=== PATIENT | male | born 1935 | race Caucasian/White ===

== ENCOUNTER 2020-02-16 15:00 | Inpatient (IN) | payer MEDICARE ==
[~2020-02-16] VITALS: Ht 175.3 cm; Wt 108.0 kg
[~2020-02-16 15:00] MED LIST: CEPH500 PO
[2020-02-16 15:48] LABS: BASOPHILS ABSOLUTE AUTO 0.03 K/mm3 (0.00-0.23); BASOPHILS PERCENT AUTO 0 % (0-2); EOSINOPHILS ABSOLUTE AUTO 0.08 K/mm3 (0.00-0.68); EOSINOPHILS PERCENT AUTO 1 % (0-6); Hematocrit 44.7 % (37.0-53.0); Hemoglobin 14.7 g/dL (13.5-17.5); IMMATURE GRAN ABSOLUTE AUTO 0.02 K/mm3 (0.00-0.10); IMMATURE GRAN PERCENT AUTO 0 % (0-1); LYMPHOCYTES ABSOLUTE AUTO 0.95 K/mm3 (0.84-5.20); LYMPHOCYTES PERCENT AUTO 13 % (21-46); MONOCYTES ABSOLUTE AUTO 0.89 K/mm3 (0.16-1.47); MONOCYTES PERCENT AUTO 12 % (4-13); Mean Corpuscular HGB 27.7 pg (26.0-34.0); Mean Corpuscular HGB Conc 32.9 g/dL (31.5-36.5); Mean Corpuscular Volume 84 fL (80-100); NEUTROPHILS ABSOLUTE AUTO 5.47 K/mm3 (1.96-9.15); NEUTROPHILS PERCENT AUTO 73 % (41-73); Platelet Count 156 K/mm3 (150-400); RDW Coefficient Variation 13.6 % (11.7-14.2); RDW Standard Deviation 42.5 fL (35.1-46.3); Red Blood Cell Count 5.31 M/mm3 (4.30-5.90); White Blood Cell Count 7.44 K/mm3 (4.00-11.30)
[2020-02-16 16:09] LABS: Alanine Aminotransfer (ALT/SGP 15 U/L (12-78); Albumin, Blood 3.1 g/dL (3.4-5.0); Albumin/Globulin Ratio 0.6 (0.8-1.8); Alk Phos 83 U/L (50-136); Anion Gap 5 mmol/L (6-16); Aspartate Aminotrans (AST/SGOT 17 U/L (12-37); Bilirubin, Total 0.7 mg/dL (0.1-1.0); Blood Urea Nitrogen 21 mg/dL (8-24); Bun/Creatinine Ratio 18.4 (12.0-20.0); CO2, Blood 30 mmol/L (21-32); Chloride, Blood 103 mmol/L (98-108); Creatinine, Blood 1.14 mg/dL (0.60-1.20); Glomerular Filtration Rate >60 (60-); Glucose, Blood 95 mg/dL (70-99); Potassium, Blood 3.4 mmol/L (3.5-5.5); Sodium, Blood 138 mmol/L (136-145); Total Protein, Blood 8.1 g/dL (6.4-8.2)
[2020-02-16] MEDS ORDERED: AMLO5 PO (18:32)
[2020-02-16] MEDS ORDERED: DYAZIDE 37.5-21 EACH PO (18:33)
[2020-02-16] MEDS ORDERED: AMLO10 PO (19:06)
[2020-02-16] MEDS ORDERED: ASPI81CH PO (21:21)
--- NOTE | 2020-02-16 22:00 | NUR ---
PT ADMITTED TO THE FLOOR FOR CELLULITIS OF THE GROIN. GENARO HAS BEEN SEEING THE [facility] BUT RECENTLY DEVELOPED WHAT HE THOUGHT WAS JOCK ITCH. IT CONTINUED TO GET WORSE AND PAINFUL SO HE CAME IN. ARRIVED TO THE FLOOR VIA GURNEY AND WAS TRANSFERRED USING THE SLIDER SHEET. LUNGS CLEAR. HR SINUS. NO CHEST PAIN OR COUGH NOTED. ABDOMIN IS DISTENDED ROUND, STATES IS HIS NORM. REGULAR BM. ABLE TO USE URINAL VOIDING WELL. LEFT SIDE OF GROIN INNER THIGH IS ANGRY RED WITH SHALLOW SKIN BREAKDOWN FROM MOISTURE. ON THE LEFT TESTICLE THERE IS THE SAME. AREAS ARE VERY RED, MOIST, WEEPING, CLEANSED AND APPLID ANTI-FUNGAL POWDER AND SILVERDENE TO THE LEG WHERE IT WAS OPENED, PLACED A EDUDRY BETWEEN THE TESTICLE AND LEG TO KEEP DRY. BLE DRESSINGS WERE CHANGED IN THE ER, CURRENTLY THERE ARE UNNA BOOTS ON BOTH SIDES. SAMARA STARTED. WILL CONTINUE TO MONITOR, CALL LIGHT IS IN REACH.
[2020-02-17 05:08] LABS: BASOPHILS ABSOLUTE AUTO 0.03 K/mm3 (0.00-0.23); BASOPHILS PERCENT AUTO 1 % (0-2); EOSINOPHILS PERCENT AUTO 2 % (0-6); Hematocrit 42.6 % (37.0-53.0); Hemoglobin 14.3 g/dL (13.5-17.5); IMMATURE GRAN ABSOLUTE AUTO 0.02 K/mm3 (0.00-0.10); IMMATURE GRAN PERCENT AUTO 0 % (0-1); LYMPHOCYTES ABSOLUTE AUTO 0.99 K/mm3 (0.84-5.20); LYMPHOCYTES PERCENT AUTO 15 % (21-46); MONOCYTES ABSOLUTE AUTO 0.92 K/mm3 (0.16-1.47); MONOCYTES PERCENT AUTO 14 % (4-13); Mean Corpuscular HGB 28.4 pg (26.0-34.0); Mean Corpuscular HGB Conc 33.6 g/dL (31.5-36.5); Mean Corpuscular Volume 85 fL (80-100); Mean Platelet Volume 10.4 fL (9.1-12.4); NEUTROPHILS ABSOLUTE AUTO 4.41 K/mm3 (1.96-9.15); NEUTROPHILS PERCENT AUTO 68 % (41-73); Platelet Count 166 K/mm3 (150-400); RDW Coefficient Variation 13.6 % (11.7-14.2); RDW Standard Deviation 42.1 fL (35.1-46.3); Red Blood Cell Count 5.04 M/mm3 (4.30-5.90); White Blood Cell Count 6.47 K/mm3 (4.00-11.30)
[2020-02-17 05:31] LABS: Anion Gap 7 mmol/L (6-16); Blood Urea Nitrogen 16 mg/dL (8-24); Bun/Creatinine Ratio 14.7 (12.0-20.0); CO2, Blood 30 mmol/L (21-32); Calcium, Blood 8.2 mg/dL (8.5-10.1); Chloride, Blood 103 mmol/L (98-108); Creatinine, Blood 1.09 mg/dL (0.60-1.20); Glomerular Filtration Rate >60 (60-); Glucose, Blood 96 mg/dL (70-99); Magnesium, Blood 2.3 mg/dL (1.6-2.4); Phosphorus, Blood 3.1 mg/dL (2.5-4.9); Potassium, Blood 3.1 mmol/L (3.5-5.5); Sodium, Blood 140 mmol/L (136-145)
--- NOTE | 2020-02-17 07:31 | NUR ---
SHIFT SUMMARY: GENARO WAS ADMITTED LAST NIGHT FOR CELLULITIS OF THE GROIN. HE REPORTS FEELING LIKE HE HAD JOCK ITCH THAT JUST WAS NOT HEALING. LEFT INNER THIGH AND THE LEFT SIDE OF HIS TESTICLES APPEARS TO BE RUBBING OR CAUSING MOITURES TO BREAKDOWN THE TISSUE. THERE ARE SEVERAL SHALLOW OPEN AREAS THAT ARE WEEPING. VERY RED AND ANGRY. SWOLLEN IN BOTH AREAS. CLEANSED AND SEPERATED WITH EXUDRY, AFTER PUTTING ORDERED MEDS ON IT. UNNA BOOTS PLACED IN ER REMAINED CDI. HE IS ABLE TO USE THE URINAL INDPENDENTLY. VS WNL, AFEBRILE. DENIED ANY PAIN OTHER THEN WHEN AREA IS TOUCHED. SLEPT WELL THROUGHOUT THE NIGHT. USES CALL LIGHT APPROPRIATLY. REPORT GIVEN TO DAYSHIFT.
--- NOTE | 2020-02-17 16:56 | NUR ---
SHIFT SUMMARY PATIENT DENIES PAIN, NAUSEA, AND SHORTNESS OF BREATH. PATIENT WORKED W/PT AND OT. UP SBA W/FWW TO BR. EATING AND DRINKING WELL. WOUND CARE COMPLETED ON SCROTUM AND BLE. DAUGHTER IN LAW VISITED IN AFTERNOON.
--- NOTE | 2020-02-18 07:42 | NUR ---
SHIFT SUMMARY: VS WNL, AFEBRILE. NO PAIN THIS SHIFT. UP INDEPENDENT TO THE BATHROOM OR USES URINAL. BLE DRESSING CHANGES REMAINED CDI. LEFT GROIN REDNESS HAS LIGHTEN UP SOME COMPARED TO PREVIOUS NIGHT. STILL VERY MOIST. CLEANSED WITH WOUND CLEANSER, MEDICATION APPLIED AND EXUDRY PLACED BETWEEN LEG AND SCROTUM. PATIENT STATES IT DOES FEEL BETTER. SWELLING HAS IMPROVED SOME WELL. IV ANTIBOTICS ADMINISTERED , IV REMAINED PATENT. NO OTHER CHANGES TO REPORT THIS SHIFT. CALL LIGHT IN REACH.
--- NOTE | 2020-02-18 12:18 | NUR ---
changed dressings on both legs and treated groin area, procedure tolerated well by pt
--- NOTE | 2020-02-18 18:52 | NUR ---
a+o, sitting up watching tv, no acute changes noted, call light in reach, iv saline locked, bed in low position, declined medication for general pain that he states is chronic
[2020-02-18 21:08] LABS: Vancomycin, Trough 7.7 ug/mL (5.0-10.0)
--- NOTE | 2020-02-19 04:55 | NUR ---
SUMMARY PT REPORTS GROIN AND LEGS ARE FEELING BETTER. PT HAS BEEN UP WATCHING TV MOST OF SHIFT. PT HAD NO COMPLAINTS NOTED. PT CURRENTLY SLEEPING AND BREATHING EASY. CALL LIGHT IN REACH.
[2020-02-19 05:01] LABS: Hematocrit 42.2 % (37.0-53.0); Hemoglobin 13.7 g/dL (13.5-17.5); Mean Corpuscular HGB 27.3 pg (26.0-34.0); Mean Corpuscular HGB Conc 32.5 g/dL (31.5-36.5); Mean Corpuscular Volume 84 fL (80-100); Mean Platelet Volume 10.6 fL (9.1-12.4); Platelet Count 181 K/mm3 (150-400); RDW Coefficient Variation 13.3 % (11.7-14.2); RDW Standard Deviation 41.1 fL (35.1-46.3); Red Blood Cell Count 5.01 M/mm3 (4.30-5.90); White Blood Cell Count 4.81 K/mm3 (4.00-11.30)
[2020-02-19 05:36] LABS: Albumin, Blood 2.7 g/dL (3.4-5.0); Anion Gap 8 mmol/L (6-16); Blood Urea Nitrogen 19 mg/dL (8-24); Bun/Creatinine Ratio 15.8 (12.0-20.0); CO2, Blood 29 mmol/L (21-32); Calcium, Blood 8.5 mg/dL (8.5-10.1); Chloride, Blood 103 mmol/L (98-108); Glomerular Filtration Rate >60 (60-); Glucose, Blood 92 mg/dL (70-99); Phosphorus, Blood 3.4 mg/dL (2.5-4.9); Potassium, Blood 3.1 mmol/L (3.5-5.5); Sodium, Blood 140 mmol/L (136-145)
[2020-02-19] MEDS ORDERED: ALEVAZOL56.7 GM TOP (12:50)
[2020-02-19] MEDS ORDERED: Silvadene20 GM TOP (12:50)
[2020-02-19] MEDS ORDERED: AMOCLA875 PO (12:51)
[2020-02-19] MEDS ORDERED: PROBIOTIC1 EA13 PO (12:51)
[2020-02-19] MEDS ORDERED: FLUC150A PO (12:52)
[2020-02-19] MEDS ORDERED: SULFAMETHOXAZO1 EAC1 PO (12:52)
--- NOTE | 2020-02-19 15:04 | NUR ---
SUMMARY/DISCHARGE PT DISCHARGED TO HOME WITH HIS DAUGHTER IN LAW, DISCHARGE INSTRUCTIONS WENT OVER WITH THE PT AND THE DAUGHTER IN LAW, PT HAS BEEN PLEASANT AND COOPERATIVE WITH CARE T/O THE DAY, DRESSINGS TO THE LE'S CHANGED JUST PRIOR TO DISCHARGE PER PT REQUEST, PT AND DAUGHTER IN LAW VERBALIZE UNDERSTANDING OF DISCHARGE INSTRUCTIONS REGARDING MEDS AND FOLLOW UP, NEW PATIENT PACKET FOR [employer] GIVEN TO THE PT, PT TAKEN OUT SAFELY VIA WHEELCHAIR
== END 2020-02-19 14:54 | disposition home or self-care (01) | DRG 603 ==
LOC: ER 15:00 → MEDS 19:02
PROVIDERS: Physician Assistant; ADMIT Internal Medicine
DX: L03.115 Cellulitis of right lower limb (principal); L03.314 Cellulitis of groin; N49.2 Inflammatory disorders of scrotum; E66.9 Obesity, unspecified; E78.5 Hyperlipidemia, unspecified; E87.6 Hypokalemia; I10 Essential (primary) hypertension; N49.3 Fournier gangrene; Z87.891 Personal history of nicotine dependence; Z20.828 Contact with and (suspected) exposure to other viral communicable diseases; Z86.73 Personal history of transient ischemic attack (TIA), and cerebral infarction without residual deficits; I89.0 Lymphedema, not elsewhere classified; Z68.34 Body mass index [BMI] 34.0-34.9, adult
CPT/HCPCS: 36415; 71045; 72193; 76870; 80048; 80053; 80069; 80202; 83605; 83735; 83880; 84100; 85025; 85027; 85651; 86140; 96365-59; 96375; 97110; 97116; 97162; 97165; 97530; 97535; 99285-25; A9270; J0690; J1450; J1650; J2543; J3370; J7030; J7040; Q9967

== ENCOUNTER 2020-03-04 11:30 | Inpatient (IN) | payer MEDICARE ==
[~2020-03-04] VITALS: Ht 177.8 cm; Wt 105.6 kg
[~2020-03-04 11:30] MED LIST changes: +ALEVAZOL56.7 GM TOP; +AMLO10 PO; +AMLO5 PO; +AMOCLA875 PO; +ASPI81CH PO; +DYAZIDE 37.5-21 EACH PO; +Diflucan100 MG PO; +PROBIOTIC1 EA13 PO; +SULFAMETHOXAZO1 EAC1 PO; +Silvadene20 GM TOP
[2020-03-04 12:24] LABS: BASOPHILS ABSOLUTE AUTO 0.05 K/mm3 (0.00-0.23); BASOPHILS PERCENT AUTO 1 % (0-2); EOSINOPHILS ABSOLUTE AUTO 0.05 K/mm3 (0.00-0.68); EOSINOPHILS PERCENT AUTO 1 % (0-6); Hematocrit 43.9 % (37.0-53.0); Hemoglobin 14.2 g/dL (13.5-17.5); IMMATURE GRAN ABSOLUTE AUTO 0.03 K/mm3 (0.00-0.10); IMMATURE GRAN PERCENT AUTO 0 % (0-1); LYMPHOCYTES ABSOLUTE AUTO 0.84 K/mm3 (0.84-5.20); LYMPHOCYTES PERCENT AUTO 9 % (21-46); MONOCYTES PERCENT AUTO 13 % (4-13); Mean Corpuscular HGB 27.3 pg (26.0-34.0); Mean Corpuscular HGB Conc 32.3 g/dL (31.5-36.5); Mean Corpuscular Volume 84 fL (80-100); Mean Platelet Volume 10.8 fL (9.1-12.4); NEUTROPHILS ABSOLUTE AUTO 7.11 K/mm3 (1.96-9.15); NEUTROPHILS PERCENT AUTO 77 % (41-73); Platelet Count 134 K/mm3 (150-400); RDW Coefficient Variation 13.8 % (11.7-14.2); RDW Standard Deviation 42.7 fL (35.1-46.3); White Blood Cell Count 9.28 K/mm3 (4.00-11.30)
[2020-03-04 12:42] LABS: Albumin, Blood 3.1 g/dL (3.4-5.0); Albumin/Globulin Ratio 0.7 (0.8-1.8); Bun/Creatinine Ratio 18.5 (12.0-20.0); Calcium, Blood 8.6 mg/dL (8.5-10.1); Creatinine, Blood 1.24 mg/dL (0.60-1.20); Globulin, Blood 4.6 g/dL (2.2-4.0); Potassium, Blood 3.4 mmol/L (3.5-5.5); Total Protein, Blood 7.7 g/dL (6.4-8.2)
--- NOTE | 2020-03-04 16:56 | NUR ---
1530 RECEIVED PT TO 343 VIA EMILIA FROM ER. PT ADMITTED FOR REDNESS TO GROIN AND SCROTUM AREA. PT HERE RECENTLY FOR IV ABX AND THEN SENT HOME WITH PO ABX. REDNESS, SWELLING AND PAIN CONTINUED TO INCREASE. PT RETURNED TO ER. IV VANCO, ZOSYN, AND UNISYN GIVEN IN ER. IMAGING CALLED WHEN PT CAME TO TO REPORT CT NEEDED. IMAGING HERE TO RECEIVE PT AT THIS TIME. SLIDE TX TO EMILIA AGAIN. REDNESS AND SWELLING TO BLE'S WELL WITH WEEPING EDEMA AND SCABS ON LEGS. WEEPING ON INNER THIGHS/GROIN AREA WELL. PT CONTINUES TO DECLINE PAIN MEDICATION AT REST. DOES NOT WANT TO DRINK ANY FLUIDS D/T PAIN TO TRY AND VOID. PT TO RECEIVE IVF'S AND IV ABX. PLEASANT AND CO-OP WITH CARE. ABD DISTENDED; PT IS MORBIDLY OBESE. HX HTN AND A-FIB. A&O, ABLE TO MAKE NEEDS KNOWN. CALL LT IN REACH.
[2020-03-05 05:30] LABS: BASOPHILS ABSOLUTE AUTO 0.06 K/mm3 (0.00-0.23); BASOPHILS PERCENT AUTO 1 % (0-2); EOSINOPHILS ABSOLUTE AUTO 0.17 K/mm3 (0.00-0.68); EOSINOPHILS PERCENT AUTO 3 % (0-6); Hematocrit 41.4 % (37.0-53.0); Hemoglobin 13.4 g/dL (13.5-17.5); IMMATURE GRAN ABSOLUTE AUTO 0.01 K/mm3 (0.00-0.10); IMMATURE GRAN PERCENT AUTO 0 % (0-1); LYMPHOCYTES ABSOLUTE AUTO 0.63 K/mm3 (0.84-5.20); LYMPHOCYTES PERCENT AUTO 10 % (21-46); MONOCYTES ABSOLUTE AUTO 1.02 K/mm3 (0.16-1.47); MONOCYTES PERCENT AUTO 17 % (4-13); Mean Corpuscular HGB 27.8 pg (26.0-34.0); Mean Corpuscular HGB Conc 32.4 g/dL (31.5-36.5); Mean Corpuscular Volume 86 fL (80-100); Mean Platelet Volume 11.2 fL (9.1-12.4); NEUTROPHILS ABSOLUTE AUTO 4.18 K/mm3 (1.96-9.15); NEUTROPHILS PERCENT AUTO 69 % (41-73); Platelet Count 126 K/mm3 (150-400); RDW Coefficient Variation 13.8 % (11.7-14.2); RDW Standard Deviation 43.3 fL (35.1-46.3); Red Blood Cell Count 4.82 M/mm3 (4.30-5.90); White Blood Cell Count 6.07 K/mm3 (4.00-11.30)
[2020-03-05 05:49] LABS: Albumin, Blood 2.7 g/dL (3.4-5.0); Albumin/Globulin Ratio 0.6 (0.8-1.8); Bilirubin, Total 0.7 mg/dL (0.1-1.0); Bun/Creatinine Ratio 16.2 (12.0-20.0); Calcium, Blood 8.4 mg/dL (8.5-10.1); Creatinine, Blood 1.3 mg/dL (0.60-1.20); Globulin, Blood 4.2 g/dL (2.2-4.0); Potassium, Blood 3.6 mmol/L (3.5-5.5); Total Protein, Blood 6.9 g/dL (6.4-8.2)
--- NOTE | 2020-03-05 06:04 | NUR ---
SHIFT SUMMARY- PT. A&O, AMBULATES WITH 1 ASSIST AND WALKER. PT. GROIN AND SCROTAL AREA RED, SWOLLEN, AND DRAINING YELLOW DRAINAGE. WOUND KEPT CLEAN AND DRY PER ORDER. PT. DENIED ANY PAIN OR DISCOMFORT THIS SHIFT. RESTED QUIETLY IN BED DURING THE NIGHT, NO APPARENT DISTRESS NOTED. IV FLUIDS INFUSING, VSS. CALL LIGHT WITHIN REACH AND SIDE RAILS UPX2. WILL CONT TO MONITOR.
--- NOTE | 2020-03-05 17:12 | NUR ---
SHIFT SUMMARY PT IS AOX4. PT DENIES N/V, SOB. PT MEDICATED FOR PAIN X1 PRIOR TO FRANKIE CARE THIS PETER. PT IS 1 ASSIST WITH FWW. FRANKIE/WOUND CARE DONE X2 THIS SHIFT TO THE GROIN. PLAN IS TO CONTINUE ON CURRENT ABX AND WOUND CARE. PT SPOKE WITH FAMILY VIA THE PHONE, BUT NO VISITORS IN TODAY. PT IS IN RECLINER, CALL LIGHT IN REACH, WITH FEET ELEVATED. IV CURRENTLY INFUSING.
--- NOTE | 2020-03-05 19:13 | NUR ---
AWAKENED FOR ROUNDING, WAS ASLEEP IN LOUNGE CHAIR. SMILED, STATED HE WANTED TO CONTINUE TO SLEEP IN THE CHAIR IT WAS MORE COMFORTABLE THAN THE BED. CALL LIGHT IN REACH. IVF OF NS IN FUSED. SITE FLUSHED.
[2020-03-06 09:34] LABS: Anion Gap 9 mmol/L (6-16); Blood Urea Nitrogen 17 mg/dL (8-24); Bun/Creatinine Ratio 15.6 (12.0-20.0); CO2, Blood 24 mmol/L (21-32); Calcium, Blood 8.9 mg/dL (8.5-10.1); Chloride, Blood 106 mmol/L (98-108); Creatinine, Blood 1.09 mg/dL (0.60-1.20); Glomerular Filtration Rate >60 (60-); Glucose, Blood 121 mg/dL (70-99); Phosphorus, Blood 3.3 mg/dL (2.5-4.9); Potassium, Blood 3.8 mmol/L (3.5-5.5); Sodium, Blood 139 mmol/L (136-145)
--- NOTE | 2020-03-06 16:51 | NUR ---
SHIFT SUMMARY PT IS AOX4. PT DENIES N/V, SOB. HEATING PAD ON BACK FOR PAIN. WOUND CARE DONE X2 BY THIS RN. PT STATES "PAIN FEELS A LITTLE BETTER TODAY WHEN YOU CLEANED IT." PT'S DAUGHTER VISITED THIS PETER. PT HAS A GOOD APPETITE. PT IS IN BED, CALL LIGHT IN REACH, BED IN LOW POSITION.
--- NOTE | 2020-03-06 19:32 | NUR ---
Awake, sitting in bed. Affect cheerful. Discusses heating pad, which is in use. Call light in reach.
[2020-03-07 05:08] LABS: Hemoglobin 13.1 g/dL (13.5-17.5); Mean Corpuscular HGB 27.5 pg (26.0-34.0); Mean Corpuscular Volume 86 fL (80-100); Mean Platelet Volume 12.1 fL (9.1-12.4); Platelet Count 108 K/mm3 (150-400); RDW Coefficient Variation 13.6 % (11.7-14.2); Red Blood Cell Count 4.77 M/mm3 (4.30-5.90); White Blood Cell Count 4.75 K/mm3 (4.00-11.30)
[2020-03-07 05:40] LABS: Albumin, Blood 2.6 g/dL (3.4-5.0); Anion Gap 8 mmol/L (6-16); Blood Urea Nitrogen 16 mg/dL (8-24); Bun/Creatinine Ratio 15.1 (12.0-20.0); CO2, Blood 28 mmol/L (21-32); Calcium, Blood 8.6 mg/dL (8.5-10.1); Chloride, Blood 105 mmol/L (98-108); Creatinine, Blood 1.06 mg/dL (0.60-1.20); Glomerular Filtration Rate >60 (60-); Glucose, Blood 98 mg/dL (70-99); Phosphorus, Blood 3.9 mg/dL (2.5-4.9); Potassium, Blood 3.6 mmol/L (3.5-5.5); Sodium, Blood 141 mmol/L (136-145)
--- NOTE | 2020-03-07 06:20 | NUR ---
SHIFT SUMMARY RESTING THROUGHOUT MOST OF SHIFT, NOTE OCCASIONAL SLEEP APNEA DURING ROUNDING, BUT LASTING FOR ONLY A FEW SECONDS WHEN OBSERVED. HOB ELEVATED, DENIED DISTRESS WHEN ASKED, SMILED OCCASIONALLY. IV ANTIBIOTICS ADMINISTERED PER MD ORDERS - SEE MAR FOR DETAILS. CALL LIGHT IN REACH.
[2020-03-07] MEDS ORDERED: VISBIOME PROBIOTIC PO (09:31)
[2020-03-07] MEDS ORDERED: AMOCLA500 PO (09:32)
--- NOTE | 2020-03-07 13:22 | NUR ---
PT WAS DISCHARGED HOME VIA WHEELCHAIR AND BELONGINGS AT SIDE. PT WAS ALERT AND ORIENTED, MADE NO COMPLAINTS OF PAIN OPR SOB AND WAS RECEPTIVE TO EDUCATION GIVEN ON NEW MEDICATIONS AND FU APPOINTMENTS.
== END 2020-03-07 12:56 | disposition home or self-care (01) | DRG 603 ==
LOC: ER 11:30 → MEDS 13:47 → ENPENDDIS 03-07 09:18 → MEDS 03-07 12:56
PROVIDERS: Emergency Medicine; Internal Medicine; ADMIT Internal Medicine
DX: L03.314 Cellulitis of groin (principal); N49.2 Inflammatory disorders of scrotum; E66.9 Obesity, unspecified; E78.5 Hyperlipidemia, unspecified; E87.6 Hypokalemia; E88.09 Other disorders of plasma-protein metabolism, not elsewhere classified; I10 Essential (primary) hypertension; I89.0 Lymphedema, not elsewhere classified; I12.9 Hypertensive chronic kidney disease with stage 1 through stage 4 chronic kidney disease, or unspecified chronic kidney disease; N18.30 Chronic kidney disease, stage 3 unspecified; I87.2 Venous insufficiency (chronic) (peripheral); B37.2 Candidiasis of skin and nail; Z86.73 Personal history of transient ischemic attack (TIA), and cerebral infarction without residual deficits; Z87.891 Personal history of nicotine dependence; Z68.31 Body mass index [BMI] 31.0-31.9, adult
CPT/HCPCS: 36415; 74177; 80053; 80069; 83605; 83880; 85025; 85027; 87040; 96365; 96366; 96367; 96375; 97116; 97161; 99284-25; A9270; J0295; J1650; J2543; J3010; J3370; J7030; J7050; Q9967

== ENCOUNTER → 2020-03-11 | Outpatient (CLI) | payer MEDICARE ==
[~2020-03-11] MED LIST changes: +AMOCLA500 PO; +NYSTOP15 GM TOP; +VISBIOME PROBIOTIC PO
[2020-03-15 09:43] LABS: C DIFFICILE DNA Positive (Negative)
== END | disposition home or self-care (01) ==
LOC: LAB SHORT 15:00 → LAB SRC 15:00 → LAB FUT 03-11 10:40
PROVIDERS: Registered Nurse
DX: K52.1 Toxic gastroenteritis and colitis (principal); T36.95XA Adverse effect of unspecified systemic antibiotic, initial encounter
CPT/HCPCS: 87324; 87493

== ENCOUNTER 2020-03-23 16:03 | Emergency (ER) | payer MEDICARE ==
[~2020-03-23] VITALS: Ht 175.3 cm; Wt 106.6 kg
[~2020-03-23 16:03] MED LIST changes: -NYSTOP15 GM TOP
[2020-03-23 17:09] LABS: BASOPHILS ABSOLUTE AUTO 0.05 K/mm3 (0.00-0.23); BASOPHILS PERCENT AUTO 1 % (0-2); EOSINOPHILS ABSOLUTE AUTO 0.07 K/mm3 (0.00-0.68); EOSINOPHILS PERCENT AUTO 1 % (0-6); Hematocrit 44.9 % (37.0-53.0); Hemoglobin 14.6 g/dL (13.5-17.5); IMMATURE GRAN ABSOLUTE AUTO 0.04 K/mm3 (0.00-0.10); IMMATURE GRAN PERCENT AUTO 0 % (0-1); LYMPHOCYTES ABSOLUTE AUTO 0.84 K/mm3 (0.84-5.20); LYMPHOCYTES PERCENT AUTO 9 % (21-46); MONOCYTES ABSOLUTE AUTO 1.08 K/mm3 (0.16-1.47); MONOCYTES PERCENT AUTO 11 % (4-13); Mean Corpuscular HGB Conc 32.5 g/dL (31.5-36.5); Mean Corpuscular Volume 83 fL (80-100); Mean Platelet Volume 10.5 fL (9.1-12.4); NEUTROPHILS ABSOLUTE AUTO 7.43 K/mm3 (1.96-9.15); NEUTROPHILS PERCENT AUTO 78 % (41-73); Platelet Count 189 K/mm3 (150-400); RDW Coefficient Variation 14.1 % (11.7-14.2); RDW Standard Deviation 42.9 fL (35.1-46.3); White Blood Cell Count 9.51 K/mm3 (4.00-11.30)
[2020-03-23 17:20] LABS: Albumin, Blood 3.2 g/dL (3.4-5.0); Albumin/Globulin Ratio 0.7 (0.8-1.8); Bilirubin, Total 0.6 mg/dL (0.1-1.0); Bun/Creatinine Ratio 16.3 (12.0-20.0); Calcium, Blood 9.2 mg/dL (8.5-10.1); Creatinine, Blood 1.41 mg/dL (0.60-1.20); Globulin, Blood 4.8 g/dL (2.2-4.0); Potassium, Blood 3.5 mmol/L (3.5-5.5)
[2020-03-23] MEDS ORDERED: NYSTOP15 GM TOP (20:15)
== END 2020-03-23 20:35 | disposition home or self-care (01) ==
LOC: ER 16:03
PROVIDERS: Physician Assistant
DX: B35.6 Tinea cruris (principal); I10 Essential (primary) hypertension; E78.5 Hyperlipidemia, unspecified; Z86.73 Personal history of transient ischemic attack (TIA), and cerebral infarction without residual deficits; Z87.891 Personal history of nicotine dependence
CPT/HCPCS: 36415; 76870; 80053; 83605; 85025; 87070; 87077; 87147; 87186; 87205; 99284-25; A9270